=== PATIENT | male | born 1950 | race Caucasian/White ===

== ENCOUNTER 2022-05-12 17:05 | Emergency (ER) | payer MEDICARE, BC ==
[2022-05-12] MEDS ORDERED: HYDROcodone/Acetaminophen 10/325 mg Tablet ONE (17:51)
[2022-05-12] MEDS ORDERED: AMOXicillin 250 MG CAP ONE (18:09)
[2022-05-12] MEDS ORDERED: Ibuprofen 800 MG TAB ONE (18:09)
[2022-05-12] MEDS ORDERED: Lidocaine 1% w/Epinephrine 1:100K 20 ML VIAL ONE (18:10)
[2022-05-12] MEDS ORDERED: Boostrix 0.5 ML (Tdap) VIAL ONE (18:36)
== END 2022-05-12 19:12 | disposition home or self-care (01) ==
LOC: BURERS 17:05
DX: S41.151A Open bite of right upper arm, initial encounter (principal); S61.451A Open bite of right hand, initial encounter; S71.151A Open bite, right thigh, initial encounter; I10 Essential (primary) hypertension; E78.5 Hyperlipidemia, unspecified; E11.9 Type 2 diabetes mellitus without complications; W54.0XXA Bitten by dog, initial encounter
CPT/HCPCS: 12002; 90471; 90715

== ENCOUNTER 2022-05-22 10:10 | Emergency (ER) | payer MEDICARE, BC | END 2022-05-22 10:42 | disposition home or self-care (01) | LOC: BURERS 10:10 | DX: S41.111D Laceration without foreign body of right upper arm, subsequent encounter (principal); I10 Essential (primary) hypertension; E78.5 Hyperlipidemia, unspecified; E11.9 Type 2 diabetes mellitus without complications; W54.0XXD Bitten by dog, subsequent encounter ==